=== PATIENT | male | born 1970 | race Caucasian/White ===

== ENCOUNTER 2021-02-08 10:20 | Emergency (ER) | payer OTHER, SELFPAY ==
[2021-02-08 10:33] VITALS: BP 130/87; PULSE 65; RESP 16; TEMP 36.3; O2SAT 99
--- NOTE | 2021-02-08 10:58 | ED.URI ---
HPI - URI/Sore Throat General Chief Complaint: Upper Respiratory Infection Stated Complaint: fatigue,sore throat,breathing prob Source: patient Mode of arrival: ambulatory Limitations: no limitations History of Present Illness HPI Narrative: Patient is a 50-year-old male who presents with fatigue, sore throat, rhinorrhea and cough x2 to 3 days. Patient reports vaccinated with [employer] x2. He reports history of autoimmune disorder. He denies fever, chest pain or shortness of breath. He denies all other complaints at this time. Related Data Home Medications Medication Instructions Recorded Confirmed aspirin 325 mg PO DAILY 02/08/21 02/08/21 paroxetine HCl 20 mg PO DAILY 02/08/21 02/08/21 ursodiol 500 mg PO TID 02/08/21 02/08/21 Allergies Allergy/AdvReac Type Severity Reaction Status Date / Time No Known Allergies Allergy Verified 02/08/21 10:49 Review of Systems Review of Systems: CONSTITUTIONAL: Denies fever, chills, or sweats. Reports fatigue. EYES: Denies visual changes, redness, or discharge. ENT: Reports rhinorrhea and sore throat CARDIOVASCULAR: Denies chest pain, palpitations, or edema. RESPIRATORY: Reports cough, denies dyspnea. GASTROINTESTINAL: Denies abdominal pain, nausea, vomiting, or diarrhea. GENITOURINARY: Denies dysuria or hematuria. SKIN: Denies rash or itching. MUSCULOSKELETAL: Denies back pain, joint pain, or myalgia. NEUROLOGIC: Denies headache, numbness, dizziness, or weakness. PSYCHIATRIC: Denies anxiety or depression. [facility] Past Medical History Medical History Autoimmune liver disease Clotting disorder Social History Social History (Updated 02/08/21 @ 11:21 by NAYELI Smith) Smoking status: Never smoker Alcohol intake: current Alcohol use details: occasional Substance use: never Living arrangements: with family Occupation/Education: occupation Gender identity (if verbalized by the patient): Male Comments At the time of signature, I have reviewed and agree with nursing past medical, surgical, social, and family history unless otherwise noted. Please see nursing chart for further information. There is no relevant family history pertinent to the presenting complaint. Exam Narrative: GENERAL: Well-appearing, well-nourished, and in no acute distress. HEAD: Normocephalic, atraumatic. EYES: EOMI. No redness or drainage. Conjunctiva are normal. ENT: Mucous membranes pink and moist. Nares clear. No rhinorrhea. TMs normal bilaterally. Throat mild erythema. Uvula midline. NECK: AROM. Supple. No lymphadenopathy. CHEST: No respiratory distress. Clear to auscultation. HEART: Regular rate and rhythm. No murmur appreciated. Normal peripheral pulses. EXTREMITIES: Normal range of motion. No edema. SKIN: Warm, dry, no rash. NEURO: No focal deficits. Alert and oriented x3. Gait steady. PSYCH: Normal affect. No signs of depression or anxiety. Course Vital Signs Vital signs: Vital Signs Temperature 36.3 C L 02/08/21 10:33 Pulse Rate 65 02/08/21 10:33 Respiratory Rate 16 02/08/21 10:33 Blood Pressure 130/87 02/08/21 10:33 Pulse Oximetry 99 02/08/21 10:33 Temperature 36.3 C L 02/08/21 10:33 Pulse Rate 65 02/08/21 10:33 Respiratory Rate 16 02/08/21 10:33 Blood Pressure 130/87 02/08/21 10:33 Pulse Oximetry 99 02/08/21 10:33 Reviewed MDM - URI/Sore Throat MDM Narrative Medical decision making narrative: Patient's rapid Covid is negative at this time. Covid PCR sent. Patient is aware of quarantine. Patient agrees with plan of care. Patient stable for discharge to home with outpatient follow-up as discussed. Differential Diagnosis Differential diagnosis: Likely upper respiratory infection, otitis media, sinusitis, viral infection, pharyngitis and other (Covid) Critical Care Time Critical Care Time Critical Care Time: No Discharge Plan Discharge Clinical
[2021-02-09 15:26] LABS: SARS-CoV-2 RNA PCR Negative
== END 2021-02-08 11:00 | disposition home or self-care (01) ==
PROVIDERS: Emergency Provider Nurse Practitioner
DX: J06.9 Acute upper respiratory infection, unspecified (principal); Z20.822 Contact with and (suspected) exposure to COVID-19; K76.9 Liver disease, unspecified; Z86.2 Personal history of diseases of the blood and blood-forming organs and certain disorders involving the immune mechanism; Z79.82 Long term (current) use of aspirin
CPT/HCPCS: 87426; 99203; C9803; G0463; U0003; U0005

== ENCOUNTER 2021-09-01 16:53 | Emergency (ER) | payer OTHER, SELFPAY ==
[2021-09-01 17:01] VITALS: BP 120/86; PULSE 65; RESP 16; TEMP 36.5; O2SAT 100
--- NOTE | 2021-09-01 17:05 | ED.GENADULT ---
HPI - General Adult General Chief complaint: Ear Stated complaint: L EAR SWELLING Time Seen by Provider: 09/01/21 17:05 Source: patient Mode of arrival: ambulatory Limitations: no limitations History of Present Illness HPI narrative: 51-year-old male patient presents to the [facility] with complaints of pain towards the top of the left ear for the past week. Denies fevers, body aches or chills. Denies any obvious trauma to the ear that he is aware of. Patient states he has been getting a lot of sun to the ears that he is aware of. Patient states couple days ago he did try and take a 27-gauge needle to the area and try and poke through but states all he got was blood and states it felt like it was really hard to try and poke through it. Related Data Home Medications Medication Instructions Recorded Confirmed aspirin 325 mg capsule 325 mg PO DAILY 02/08/21 09/01/21 ursodiol 500 mg tablet 500 mg PO TID 02/08/21 09/01/21 Allergies Allergy/AdvReac Type Severity Reaction Status Date / Time No Known Allergies Allergy Verified 09/01/21 16:58 Review of Systems Review of Systems: CONSTITUTIONAL: Denies fever, chills, or sweats. EYES: Denies visual changes, redness, or discharge. ENT: Denies rhinorrhea, congestion, sore throat, or otalgia. Positive left ear pain CARDIOVASCULAR: Denies chest pain, palpitations, or edema. RESPIRATORY: Denies cough or dyspnea. GASTROINTESTINAL: Denies abdominal pain, nausea, vomiting, or diarrhea. GENITOURINARY: Denies dysuria or hematuria. SKIN: Denies rash or itching. MUSCULOSKELETAL: Denies back pain, joint pain, or myalgia. NEUROLOGIC: Denies headache, numbness, or weakness. PSYCHIATRIC: Denies anxiety or depression. [facility] Past Medical History Medical History Autoimmune liver disease Clotting disorder Social History Social History Smoking status: Never smoker Alcohol intake: current Alcohol use details: occasional Substance use: never Gender identity (if verbalized by the patient): Male Comments At the time of my signature I agree with nursing past medical history, surgical, social, and family history. There is no relevant family history pertinent to the presenting complaint. Exam Narrative: GENERAL: Well-appearing, well-nourished, and in no acute distress. HEAD: Normocephalic, atraumatic. EYES: PERRLA and EOMI. ENT: Nares clear, no rhinorrhea or epistaxis. Mucous membranes moist. Patient has what appears to be an abscess to the scapha area of the left ear. There is slight swelling and warmth present. No obvious discharge noted. NECK: Supple. No lymphadenopathy CHEST: Clear to auscultation. No respiratory distress. HEART: Regular rate and rhythm. No murmur heard. Normal peripheral pulses. ABDOMEN: Soft, nontender, nondistended, normal active bowel sounds. EXTREMITIES: Normal range of motion. No edema. SKIN: Warm, dry, no rash. NEURO: No focal deficits. Alert and oriented x3. Course Course Level of Care: Express Care Visit Vital Signs Vital signs: Vital Signs Temperature 36.5 C 09/01/21 17:01 Pulse Rate 65 09/01/21 17:01 Respiratory Rate 16 09/01/21 17:01 Blood Pressure 120/86 09/01/21 17:01 Pulse Oximetry 100 09/01/21 17:01 Temperature 36.5 C 09/01/21 17:01 Pulse Rate 65 09/01/21 17:01 Respiratory Rate 16 09/01/21 17:01 Blood Pressure 120/86 09/01/21 17:01 Pulse Oximetry 100 09/01/21 17:01 Vital signs reviewed The patient has been informed that they may have pre-hypertension or Hypertension based on a BP reading in the department. I recommend that the patient call the primary care provider listed on their discharge instructions or a physician of their choice this week to arrange follow up for further evaluation of possible pre-hypertension or Hypertension Procedures Abscess I/D other: Date of Incisi
[2021-09-01] MEDS: LIDOCAINE, EPINEPHRINE, TETRACAINE VISCOUS SOLN 3 ML TOPICAL (17:28)
[2021-09-01] MEDS: LIDOCAINE HCL 1% LOCAL INJ 10 ML VIAL INFILTRATE (18:18)
--- NOTE | 2021-09-01 18:21 | PC.NURSE ---
1817 after procedure by provider, pt has folded 4x4 dressing to top portion left ear.
== END 2021-09-01 18:18 | disposition home or self-care (01) ==
PROVIDERS: Emergency Provider Nurse Practitioner Family
DX: H60.02 Abscess of left external ear (principal); K76.9 Liver disease, unspecified; D75.9 Disease of blood and blood-forming organs, unspecified; G47.30 Sleep apnea, unspecified
CPT/HCPCS: 69000; 99213; G0463

== ENCOUNTER 2024-11-04 17:29 | Emergency (ER) | payer OTHER, SELFPAY ==
[2024-11-04 17:40] VITALS: BP 125/93; PULSE 70; RESP 16; TEMP 36.3; O2SAT 98
--- NOTE | 2024-11-04 18:17 | ED.GENADULT ---
HPI - General Adult General Chief complaint: Skin/Abscess/Foreign Body Stated complaint: rash Time Seen by Provider: 11/04/24 18:00 Source: patient and RN notes reviewed Mode of arrival: ambulatory Limitations: no limitations History of Present Illness HPI narrative: Patient presents today complaining of body aches, fatigue, sweats, headache x1 week he has tried Tylenol and ibuprofen for symptoms with some improvement. Denies sore throat, rhinorrhea, congestion, cough. Today he noted a widespread rash to the chest, back, and all 4 extremities. Denies itching or pain to the rash. Denies known sick contacts. Patient states his energy has been waxing and waning, but he did go to the gym and workout many days this week. Patient did a home COVID test 3 days ago that was negative Related Data Home Medications ?Medication ?Instructions ?Recorded ?Confirmed ?Last Taken ?Type aspirin 325 mg capsule 325 mg PO DAILY 02/08/21 09/01/21 Unknown History ursodiol 500 mg tablet 500 mg PO TID 02/08/21 09/01/21 Unknown History Allergies Allergy/AdvReac Type Severity Reaction Status Date / Time No Known Allergies Allergy Verified 11/04/24 17:50 [facility] Past Medical History Medical History Clotting disorder Autoimmune liver disease Social History Social History Smoking status: Never smoker Alcohol intake: current Alcohol use details: occasional Substance use: never Living arrangements: with family Occupation/Education: occupation Gender identity (if verbalized by the patient): Male Comments At time of signature, I have reviewed and agree with nursing past medical, surgical, social and family history unless otherwise noted. Please see nursing chart for further information. There is no relevant family history pertinent to the presenting complaint Exam Narrative: GENERAL: Well-appearing, well-nourished, and in no acute distress. HEAD: Normocephalic, atraumatic. EYES: EOMI. No redness or drainage. Conjunctivae normal. ENT: Mucous membranes pink and moist. Nares clear. No rhinorrhea. TMs normal bilaterally. Throat normal. Uvula midline. NECK: Normal AROM. Supple. No lymphadenopathy. CHEST: No respiratory distress. Clear to auscultation. HEART: Regular rate and rhythm. No murmur appreciated. EXTREMITIES: Normal range of motion. No edema. SKIN: Warm, dry. Capillary refill normal. Normal skin turgor. Mildly erythematous papular rash widespread over the chest, abdomen, back, all 4 extremities. No vesicles, drainage, crusting. NEURO: No focal deficits. Alert and oriented x3. Gait steady. PSYCH: Normal affect. No signs of depression or anxiety. Course Course Level of Care: Express Care Visit Vital Signs Vital signs: Vital Signs Temperature 97.4 F L 11/04/24 17:40 Pulse Rate 70 11/04/24 17:40 Respiratory Rate 16 11/04/24 17:40 Blood Pressure 125/93 H 11/04/24 17:40 Pulse Oximetry 98 11/04/24 17:40 Oxygen Delivery Room Air 11/04/24 17:40 Temperature 97.4 F L 11/04/24 17:40 Pulse Rate 70 11/04/24 17:40 Respiratory Rate 16 11/04/24 17:40 Blood Pressure 125/93 H 11/04/24 17:40 Pulse Oximetry 98 11/04/24 17:40 Oxygen Delivery Room Air 11/04/24 17:40 Reviewed Medical Decision Making MDM Narrative Medical decision making narrative: 54-year-old male patient presents today complaining of a one-week history of generalized body aches, fatigue, headache, sweats. Today he developed a diffuse rash to the trunk and all 4 extremities without itching or pain. He denies upper respiratory symptoms to include sore throat, rhinorrhea, congestion, cough. States he has been well enough to go to the gym and workout as well as have a massage yesterday. Upon exam, aside from this diffuse mildly erythematous papular rash over the trunk and all 4 extremities, patient's exam was otherwise normal. Rapid strep was negative. Symptoms likely viral in etiology. Discussed [id number] medication use and duration of illness. No prescription medications indicated at this time. Anticipatory guidance given. Vital signs stable. Strict ED precautions given. Differential Diagnosis Differential Diagnosis: Viral syndrome, viral exanthem, scarlet fever, contact dermatitis Vital Signs Vital Signs: Vital Signs Temperature 97.4 F L 11/04/24 17:40 Pulse Rate 70 11/04/24 17:40 Respiratory Rate 16 11/04/24 17:40 Blood Pressure 125/93 H 11/04/24 17:40 Pulse Oximetry 98 11/04/24 17:40 Oxygen Delivery Room Air 11/04/24 17:40 Temperature 97.4 F L 11/04/24 17:40 Pulse Rate 70 11/04/24 17:40 Respiratory Rate 16 11/04/24 17:40 Blood Pressure 125/93 H 11/04/24 17:40 Pulse Oximetry 98 11/04/24 17:40 Oxygen Delivery Room Air 11/04/24 17:40 Lab Data Labs: Lab Results 11/04/24 Range/Units 18:23 POC Grp A Strep Screen Negative (Negative) Critical Care Time Critical Care Time Critical Care Time: No Discharge Plan Discharge Clinical Impression: Viral syndrome Patient Disposition: Home Condition: Stable Instructions: Viral Syndrome (ED) Additional Instructions: Your symptoms are likely due to a viral illness, which is not treated with antibiotics. Virus symptoms can last for up to 7-10days. Take ibuprofen or Aleve for pain or fever. Rest and stay hydrated. Follow up with your PCP in 7 days if symptoms are not improving. Go to the ER immediately if you develop shortness of breath, chest pain, difficulty swallowing, development of new fever greater than 100.3, or any other concerning symptoms. Your blood pressure was elevated above 120/80 today at Urgent Care. This puts you above the threshold for follow up. Please schedule a followup visit with your personal physician as soon as possible, for further evaluation and treatment. Even blood pressure exceeding 120/80 may indicate pre-hypertension. Patient Language: Malaysian Prescriptions: No Action ursodiol 500 mg tablet 500 mg PO TID aspirin 325 mg Capsule 325 mg PO DAILY cephalexin 500 mg capsule 500 mg PO Q12H 7 Days Qty: 14 0RF mupirocin 2 % ointment 1 applic topical BID Qty: 22 0RF Follow-up/Referrals: PHYSICIAN NOT ON STAFF,NONSTAFF [Primary Care Provider] Time of Disposition: 18:37
[2024-11-04 18:24] LABS: EDSTREPNEGPOS1 Negative (Negative)
== END 2024-11-04 18:40 | disposition home or self-care (01) ==
PROVIDERS: Emergency Provider Nurse Practitioner
DX: B34.9 Viral infection, unspecified (principal); K76.9 Liver disease, unspecified; Z86.2 Personal history of diseases of the blood and blood-forming organs and certain disorders involving the immune mechanism; Z79.82 Long term (current) use of aspirin
CPT/HCPCS: 87081; 87880; 99213; G0463